=== PATIENT | male | born 1980 | race Caucasian/White ===

== ENCOUNTER 2022-04-20 06:49 | Emergency (ER) | payer OTHER ==
[~2022-04-20 06:49] MED LIST: IBUPROFEN800 MG PO
[2022-04-20 07:11] LABS: BILIRUBIN NEGATIVE (NEGATIVE); BLOOD 3+ Ery/uL (NEGATIVE); CLARITY CLEAR (CLEAR); COLOR YELLOW (YELLOW); GLUCOSE (U) NORMAL (NORMAL); LEUKOCYTES NEGATIVE Leu/uL (NEGATIVE); NITRITE NEGATIVE (NEGATIVE); PROTEIN NEGATIVE (NEGATIVE); UROBILINOGEN 0.2 mg/dL (0.2-1.0)
[2022-04-20 07:26] LABS: AMORPHOUS PHOSPHATE CRYSTALS MODERATE
[2022-04-20 07:54] LABS: BASOPHIL 0.6 % (0-2); EOSINOPHIL 0.9 % (0-5); HCT 48.1 % (42.0-52.0); HGB 16.5 g/dl (13.2-18.0); LYMPHOCYTE 36.9 % (15-48); MCH 31.6 pg (25.0-31.0); MCHC 34.3 g/dL (32.0-36.0); MCV 92.1 fL (78.0-100.0); MONOCYTE 9.1 % (0-12); NEUTROPHIL 51.5 % (41-80); NRBC 0; PLT 237 K/uL (150-400); RBC 5.22 M/uL (4.70-6.00); RDW 12.3 % (11.5-14.0); WBC 10.9 K/uL (4.0-10.5)
[2022-04-20 08:28] LABS: ALBUMIN 3.5 g/dL (3.4-5.0); BILIRUBIN - TOTAL 0.3 mg/dL (0.2-1.0); BUN/CREAT RATIO (CALC) 19.3 RATIO; CREATININE 1.09 mg/dL (0.67-1.17); GLOBULIN (CALCULATION) 2.8 g/dL; POTASSIUM 3.8 mmol/L (3.5-5.1); TOTAL PROTEIN 6.3 g/dL (6.4-8.2)
[2022-04-20] MEDS ORDERED: NORCO 5-325 TA1 EACH PO (09:09)
[2022-04-20] MEDS ORDERED: ONDANSETRON ODT4 MG PO (09:09)
[2022-04-20] MEDS ORDERED: FLOMAX0.4 MG PO (09:09)
== END 2022-04-20 09:35 | disposition home or self-care (01) ==
LOC: FER 06:49
PROVIDERS: Emergency Medicine
DX: N20.1 Calculus of ureter (principal); F17.200 Nicotine dependence, unspecified, uncomplicated; Z28.310 Unvaccinated for COVID-19
CPT/HCPCS: 36415; 80053; 81001; 85025; J1170; J1885; J2405; J7030